=== PATIENT | male | born 1965 | race Caucasian/White ===

== ENCOUNTER 2017-01-06 11:03 | Inpatient (IN) | payer MEDICARE ==
--- OUTSIDE RECORDS SUMMARY | 2017-01-06 11:43 | XMS REPORT | Continuity of Care Document ---
:1965 Author Organization [facility] ([facility]) Address [address] [place] [address] Phone [phone] Care Team Providers Name Role Phone CheyJohn davis Primary Care Provider [phone] Source Comments This disclosure is being made pursuant to the Care Everywhere program, applicable federal and state laws, and may not contain all informaitonavailable regarding this patient.[facility] ([facility]) Active Allergies and Adverse Reactions No Known Allergies Current Medications Prescription Sig. Disp. Refills Start Date End Date Status amLODIPine 5 mg tablet Take 1 Tab (5 mg 30 Tab 11 04/12/2015 Active total) by mouth daily aspirin 81 mg EC tablet Take 1 Tab (81 mg 30 Tab 11 04/12/2015 Active total) by mouth daily atorvastatin 40 mg tablet Take 1 Tab (40 mg 30 Tab 11 04/12/2015 Active total) by mouth daily clopidogrel 75 mg tablet Take 1 Tab (75 mg 30 Tab 11 04/12/2015 Active total) by mouth daily lisinopril 20 mg tablet Take 1 Tab (20 mg 30 Tab 11 04/12/2015 Active total) by mouth daily metoPROLol tartrate 25 mg Take 1 Tab (25 mg 60 Tab 11 04/12/2015 Active tablet total) by mouth every 12 hours Active Problems Problem Noted Date ST elevation myocardial infarction (STEMI) 04/10/2015 HTN (hypertension) 04/10/2015 HLD (hyperlipidemia) 04/10/2015 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, 04/10/2015 initial episode of care CAD (coronary artery disease), [place] coronary artery 04/10/2015 NSVT (nonsustained ventricular tachycardia) 04/10/2015 Social History Tobacco Use Types Packs/Day Years Used Date Never Smoker Smokeless Tobacco: Never Used Alcohol Use Drinks/Week oz/Week Comments No Last Filed Vital Signs Vital Sign Reading Time Taken Blood Pressure 132/72 04/12/2015 7:26 AM CDT Pulse 86 04/12/2015 7:26 AM CDT Temperature 37.1 C (98.8 F) 04/12/2015 7:26 AM CDT Respiratory Rate 18 04/12/2015 7:26 AM CDT Height 1.778 m (5' 10") 04/10/2015 12:19 AM CDT Weight 100.7 kg (222 lb 0.1 oz) 04/12/2015 5:00 AM CDT Body Mass Index 31.85 04/12/2015 5:00 AM CDT Oxygen Saturation 94% 04/12/2015 7:26 AM CDT Plan of Care Health Maintenance Due Date Last Done Comments HCV Screening 1965 Hepatitis B Vaccine (1 of 3 - Primary Series) 1965 Tdap Vaccine 1974 MMR Vaccine 1981 Td Vaccine 1981 Colonoscopy 03/06/2013 Prostate Cancer Screening 2013 Influenza Vaccine: Seasonal (#1) 06/27/2016 Lipid Disorder Screening 04/10/2020 04/10/2015 Results from Last 3 Months Not on file
[2017-01-06 11:51] LABS: Hematocrit 50.3 % (42.0-52.0); Hemoglobin 14.9 gm/dL (13.5-18.0); Mean Cell Volume 94.2 fl (78-100); Mean Corpuscular Hemoglobin 27.9 pg (27-31); Mean Corpuscular Hgb Conc 29.6 g/dl (32-36); Mean Platelet Volume 9.8 fl (6.0-9.5); Neutrophil # 14.3 K/mm3 (1.3-6.0); Neutrophil % 82.5 % (42-75.0); Platelet Count 157 K/mm3 (150-450); Red Blood Count 5.34 M/mm3 (4.7-6.0); Red Cell Distribution Width 14.6 % (11.5-14.0); White Blood Count 17.4 K/mm3 (4.0-10.5)
[2017-01-06 12:07] LABS: Troponin I 0.062 ng/ml (0.00-0.10)
[2017-01-06 12:08] LABS: Albumin * 3.5 gm/dl (3.4-5.0); BUN/Creatinine Ratio 51.5 (9.0-21.6); Bilirubin, Total 0.4 mg/dL (0.0-1.1); Ca. Corrected For Albumin 9.5 mg/dL (8.4-10.2); Calcium * 9.4 mg/dL (7.9-10.9); Potassium 3.6 mmol/L (3.4-4.6); Total Protein 7.5 gm/dL (6.2-8.2)
[2017-01-06 12:18] LABS: Anion Gap 1.3 mmol/L (6.8-13.8); Carbon Dioxide 56.3 mmol/L (24-32.6)
[2017-01-06] MEDS ORDERED: FUROSEMIDE 10 MG/ML VIAL IV ONE ×2 (13:12→19:15)
--- OUTSIDE RECORDS SUMMARY | 2017-01-06 13:47 | XMS REPORT | Continuity of Care Document ---
:1965 Author Organization [facility] ([facility]) Address [address] [place] [address] Phone [phone] Care Team Providers Name Role Phone CheyJohn davis Primary Care Provider [phone] Source Comments This disclosure is being made pursuant to the Care Everywhere program, applicable federal and state laws, and may not contain all informaitonavailable regarding this patient.[facility] ([facility]) Active Allergies and Adverse Reactions No Known [...] episode of care CAD (coronary artery disease), [place] coronary artery 04/10/2015 NSVT (nonsustained ventricular tachycardia) [...]
--- NOTE | 2017-01-06 13:48 | ERNOTE ---
Dyspnea - Date Date of Service: 01/06/17 - General Presenting Symptoms: shortness of breath Time Seen by Provider: 01/06/17 11:07 Source: family, other - patient does provide some history but it is limited. Exam Limitations: no limitations - Immun/Allergies/Home Medications Immunizations: IMMUNIZATION HX Immunizations Up to Date Yes Allergies/Adverse Reactions: Allergies No Known Allergies Allergy (Verified 01/06/17 11:13) Home Medications: HOME MEDICATIONS Acetaminophen/Diphenhydramine [Tylenol Pm Ex-Strength Caplet] 500 mg PO Q6H PRN 08/10/16 [Last Taken Unknown] Albuterol Sulfate [Ventolin HFA] 2 puff INH QID PRN 08/10/16 [Last Taken Unknown ] Atorvastatin Calcium [Lipitor] 40 mg PO HS 08/10/16 [Last Taken Unknown] Calcium Carbonate [Tums] 500 mg PO QID PRN 08/10/16 [Last Taken Unknown] Clopidogrel Bisulfate [Plavix] 75 mg PO DAILY 08/10/16 [Last Taken Unknown] Lisinopril [Zestril] 20 mg PO DAILY 08/10/16 [Last Taken Unknown] Menthol [Biofreeze] 1 appl TP QID PRN 08/10/16 [Last Taken Unknown] Metoprolol Tartrate [Lopressor] 25 mg PO BID 08/10/16 [Last Taken Unknown] Naproxen Sodium [Aleve] 220 mg PO BID PRN 08/10/16 [Last Taken Unknown] Potassium Chloride 10 meq PO TID 08/10/16 [Last Taken Unknown] guaiFENesin [Tab Tussin] 400 mg PO Q4H PRN 08/10/16 [Last Taken Unknown] Furosemide [Lasix] 80 mg PO DAILY #14 tablet 08/15/16 [Last Taken Unknown] Miconazole Nitrate [Cain Antifungal] 1 appl TP BID 01/06/17 [Last Taken Unknown] buPROPion HCL [Wellbutrin SR, Zyban] 150 mg PO BID 01/06/17 [Last Taken Unknown] - History of Present Illness Narrative: Patient presents to the ED via EMS. He can provide some history but it is limited. here, she relates he is DNR/DNI but uses CPAP. relates his CPAP isn't working well for him. He has been trying to get into hospice but that has not been arranged. They understand that his condition is end of life and she request comfort care but no intubation (BiPap only). He denies pain right now. History limited but he will answer some questions. This has been gradually progressive. No acute onset. Legs more swollen. New Sx of left leg skin redness has been noted. Nothign clearly makes this better or worse. Severity: other - his SOB gradually worsening Treatment GAMING DIRECTOR: other - NRB per EMS Initiating event: Reports: other - gradual decline. No acute initiating event Frequency of episodes: Reports: frequent episodes Modifying Factors - (Improves): Reports: nothing Modifying Factors (Worsens): Reports: nothing Associated Symptoms-Dyspnea: Reports: ankle/leg swelling. Denies: fever/chills Prior Treatment: Denies: currently on antibiotics Review of Systems - Narrative Narrative: ROS limited/unavailable d/t patient condition. - Review of Systems All Other Systems: All systems neg except as marked - Patient's Past Medical History Patient History - Medical: Other Patient History - Cardiac/Respiratory: Asthma, Coronary Heart Disease, Hypertension, Hyperlipidemia, Pneumonia, Home O2 Use, Sleep Apnea Patient History - Cancer: No Hx of Cancer Patient History - Surgical Procedures: No surgical history Patient History - Other: None - Family History Mother Family History - Medical: Hypothyroidism, Other Brother Family History - Medical: Other Father Family History - Cardiac/Respiratory: Hypertension - Social History Living Situations: home Alcohol Use: none Drug Use: none - Immunizations Immunizations Up to Date: Yes Physical Exam - Physical Exam General Appearance: Present: other - somnolent but opens eyes and will answer some questions. Mild respiratory distress at this time. Eye Exam: Normal inspection: bilateral, PERRL: bilateral Ears, Nose, Throat: Present: normal ENT inspection Neck: Present: normal inspection Respiratory: Present: decreased breath sounds, other - mild distress. Absent: wheezing Cardiovascular/Chest: Present: tachycardia, other - regular Gastrointestinal/Abdominal: Present: normal bowel sounds, nondistended, soft Back Exam: Absent: CVA tenderness (R), CVA tenderness (L) Extremity Exam: Present: other - bilateral LE swelling. Cellulitic changes left low leg. Redness, warmth, exam c/w cellulitis Neurological Exam: Present: other - somnolent but answers some questions. Diffuse weakness. end stage MD noted. Skin Exam: Present: other - cellulitis left low leg ED Progress - Results and Orders Patient's Lab Results:: I have reviewed the patient's lab results. - Vital Signs Patient's Vital Signs:: I have reviewed the patient's vital signs. Vital Signs: Vital Signs 01/06/17 01/06/17 01/06/17 11:04 11:06 11:52 Temperature 36.7 C 36.0 C L Pulse Rate 112 H 106 H Respiratory 23 H Rate Blood Pressure 241/132 O2 Sat by Pulse 90 Oximetry - EKG EKG read: Interp. by me EKG Comments: Sinus tachycardia rate 112. Non-specific ST/T wave changes, no celar evidence of STEMI. - X-Ray X-Ray #1 X-Ray: chest Interpretation: Reviewed by me X-ray Comments: I reviewed CXR radiology report. - Progress/Reassessment Chief Complaint: Dyspnea Progress Note-Subjective: 01/06/17 14:02 Pt improved per with BiPap. Pt is DNR and DNI. wants comfort measures. Fluid overload treated. Cellulitis treated. D/W Dr Bass as Dr Mcgowan not available. Dr Bass will admit for further eval and management. would like hospice and human services case manager will be involved. Departure Clinical Impression: Hypercarbia, Congestive heart disease - Departure Disposition: [facility]
[2017-01-06] MEDS ORDERED: FUROSEMIDE 10 MG/ML VIAL ONE (14:52)
[2017-01-06] MEDS: LEVOFLOXACIN/D5W 500 MG/100 ML BAG IV SCH (15:07)
[2017-01-06 16:57] LABS: Urine Appearance Slightly Cloudy; Urine Color Yellow
[2017-01-06 16:59] LABS: Urine Bilirubin Negative (NEGATIVE); Urine Blood 10 /ul (NEGATIVE); Urine Ketone Negative (NEGATIVE); Urine Nitrite Negative (NEGATIVE); Urine Protein 100 mg/dL (NEGATIVE); Urine Specific Gravity 1.025 SP.GR. (1.005-1.030); Urine Urobilinogen Normal (NORMAL); Urine pH 6.5 pH (5.0-7.0)
[2017-01-06 17:00] LABS: Urine Bacteria 1+; Urine Hyaline Cast 0-5 /LPF; Urine Mucus Few - 1+; Urine RBC 0-5 /hpf (0-5); Urine Renal Epithelial Cell Few - 1+ /hpf
--- NOTE | 2017-01-06 18:14 | HP ---
Chief Complaint - Chief Complaint Date of Service: 01/06/17 Time of Service: 17:00 Chief Complaint: Shortness of breath History of Present Illness: Artur is a 51 yo male that presented with shortness of breath. He has muscular dystrophy that has slowly been worsening. He chronically uses oxygen at home, but despite oxygen recently he has been getting more short of breath. He presented to the [facility] ER and was hypoxic with oxygen in the 80s. He was placed on a non rebreather and oxygen only maintained at 88%. He had blood gases that showed hypercapnea and was placed on bipap which helped bring his oxygen levels above 90%. He had a chest xray that showed pulmonary congestion. He was given Lasix. - Patient's Past Medical History Patient History - Medical: Other - Muscular Dystrophy Patient History - Cardiac/Respiratory: Asthma, Coronary Heart Disease, Hypertension, Hyperlipidemia, Pneumonia, Home O2 Use, Sleep Apnea, Other - Chronic Respiratory Failure - Hypoxia Patient History - Cancer: No Hx of Cancer Patient History - Surgical Procedures: No surgical history Patient History - Other: None - Family History Mother Family History - Medical: Hypothyroidism, Other Brother Family History - Medical: Other Father Family History - Cardiac/Respiratory: Hypertension - Social History Living Situations: home Smoking Status: Never smoker Have you smoked in the past 12 months: No Alcohol Use: none Drug Use: none - Immunizations Immunizations Up to Date: Yes Review Of Systems (GEN) - Review of Systems Generalized/Overall Review: Present: Weakness EENTM: Present: No Symptoms Reported Respiratory: Present: Cough, Shortness of Breath Cardiac: Present: No Symptoms Reported Abdominal: Present: No Symptoms Reported Genitourinary: Present: No Symptoms Reported Musculoskeletal: Present: No Symptoms Reported Neurological: Present: No Symptoms Reported Skin: Present: No Symptoms Reported Immunizations: IMMUNIZATION HX Immunizations Up to Date Yes Allergies/Adverse Reactions: Allergies Allergy/AdvReac Type Severity Reaction Status Date / Time No Known Allergies Allergy Verified 01/06/17 11:13 Home Medications: HOME MEDICATIONS Acetaminophen/Diphenhydramine [Tylenol Pm Ex-Strength Caplet] 500 mg PO Q6H PRN 08/10/16 [Last Taken Unknown] Albuterol Sulfate [Ventolin HFA] 2 puff INH QID PRN 08/10/16 [Last Taken Unknown ] Atorvastatin Calcium [Lipitor] 40 mg PO HS 08/10/16 [Last Taken Unknown] Calcium Carbonate [Tums] 500 mg PO QID PRN 08/10/16 [Last Taken Unknown] Clopidogrel Bisulfate [Plavix] 75 mg PO DAILY 08/10/16 [Last Taken Unknown] Menthol [Biofreeze] 1 appl TP QID PRN 08/10/16 [Last Taken Unknown] Metoprolol Tartrate [Lopressor] 25 mg PO BID 08/10/16 [Last Taken Unknown] Naproxen Sodium [Aleve] 220 mg PO BID PRN 08/10/16 [Last Taken Unknown] Potassium Chloride 10 meq PO TID 08/10/16 [Last Taken Unknown] guaiFENesin [Tab Tussin] 400 mg PO Q4H PRN 08/10/16 [Last Taken Unknown] Furosemide [Lasix] 80 mg PO DAILY PRN 01/06/17 [Last Taken Unknown] Miconazole Nitrate [Cain Antifungal] 1 appl TP BID 01/06/17 [Last Taken Unknown] buPROPion HCL [Wellbutrin Sr, Zyban] 150 mg PO BID 01/06/17 [Last Taken Unknown] Azithromycin [Zithromax] 500 mg PO DAILY #5 tab 01/11/17 [Last Taken Unknown] Cefdinir [Omnicef] 300 mg PO Q12H #20 cap 01/11/17 [Last Taken Unknown] Docusate Sodium [Colace] 200 mg PO HS #60 capsule 01/11/17 [Last Taken Unknown] HYDROcodone/ACETAMINOPHEN [[place] 5-325] 1 each PO Q4H PRN #60 tablet 01/11/17 [ Last Taken Unknown] Lisinopril [Zestril] 5 mg PO DAILY #30 tablet 01/11/17 [Last Taken Unknown] predniSONE [Prednisone] 40 mg PO DAILY #14 tablet 01/11/17 [Last Taken Unknown] Exam - Exam Vital Signs: Vital Signs - Last Taken Temp 36.8 C 01/06/17 13:45 Pulse 108 H 01/06/17 15:02 Resp 17 01/06/17 14:48 BP 115/82 01/06/17 15:02 Pulse Ox 98 01/06/17 14:48 Constitutional: Present: Oriented x3, Cooperative, Somnolent ENT Exam: Present: hearing grossly normal Eye Exam: bilateral eye: normal inspection Respiratory: Present: respiratory distress, decreased breath sounds, rales - bilaterally, other - currently on bipap Cardiovascular/Chest: Present: no murmur, tachycardia Abdomen: Present: Normal bowel sounds, soft, nontender, nondistended Skin Exam: Present: normal color, warm/dry, no cyanosis Diagnostic Studies: Abnormal Lab Results 01/06/17 01/06/17 Range/Units 14:50 16:25 pCO2 53.6 H (35.0-48.0) mmHg pO2 118.7 H (83.0-108.0) mmHg HCO3 49.6 H (21.0-28.0) mmol/L Total CO2 51.2 H (19.0-24.0) mmol/L Base Excess 24.0 H (-2.0-3.0) mmol/L ABG pH 7.58 H (7.35-7.45) ABG O2 Sat (Measured) 98.7 H (94.0-98.0) % Urine Protein 100 H (NEGATIVE) mg/dL Urine Glucose (UA) 100 H (NEGATIVE) mg/dL Urine Blood 10 H (NEGATIVE) /ul Prot Sulfosalicylic Acd 4+ H (0) mg/dL Urine WBC 5-10 H (0-5) /hpf Ur Renal Epithelial Cell Few - 1+ H (NONE) /hpf Urine Bacteria 1+ H (NONE) Hyaline Casts 0-5 H (NONE) /LPF Urine Mucus Few - 1+ H (NONE) Laboratory Results WBC 17.4 K/mm3 (4.0-10.5) H 01/06/17 11:40 RBC 5.34 M/mm3 (4.7-6.0) 01/06/17 11:40 Hgb 14.9 gm/dL (13.5-18.0) 01/06/17 11:40 Hct 50.3 % (42.0-52.0) 01/06/17 11:40 MCV 94.2 fl (78-100) 01/06/17 11:40 MCH 27.9 pg (27-31) 01/06/17 11:40 MCHC 29.6 g/dl (32-36) L 01/06/17 11:40 RDW 14.6 % (11.5-14.0) H 01/06/17 11:40 Plt Count 157 K/mm3 (150-450) 01/06/17 11:40 MPV 9.8 fl (6.0-9.5) H 01/06/17 11:40 Immature Gran % (Auto) 0.90 % (0.001-0.429) H 01/06/17 11:40 Immature Gran # (Auto) 0.16 K/mm3 (0.000-0.0310) H 01/06/17 11:40 Neutrophils % 82.5 % (42-75.0) H 01/06/17 11:40 Lymphocytes % 9.3 % (20-51) L 01/06/17 11:40 Monocytes % 6.9 % (0.0-9) 01/06/17 11:40 Eosinophils % 0.2 % (0.0-3.0) 01/06/17 11:40 Basophils % 0.2 % (0.0-1.0) 01/06/17 11:40 Nucleated RBC % 0.0 k/mm3 (0-1) 01/06/17 11:40 Neutrophils # 14.3 K/mm3 (1.3-6.0) H 01/06/17 11:40 Lymphocytes # 1.6 k/mm3 (1.5-3.5) 01/06/17 11:40 Monocytes # 1.2 k/mm3 (0.0-1.0) H 01/06/17 11:40 Eosinophils # 0.0 k/mm3 (0.0-0.7) 01/06/17 11:40 Absolute Basophils 0.0 k/mm3 (0.0-0.1) 01/06/17 11:40 pCO2 53.6 mmHg (35.0-48.0) H 01/06/17 16:25 pO2 118.7 mmHg (83.0-108.0) H 01/06/17 16:25 HCO3 49.6 mmol/L (21.0-28.0) H 01/06/17 16:25 Total CO2 51.2 mmol/L (19.0-24.0) H 01/06/17 16:25 Base Excess 24.0 mmol/L (-2.0-3.0) H 01/06/17 16:25 ABG pH 7.58 (7.35-7.45) H 01/06/17 16:25 ABG O2 Sat (Measured) 98.7 % (94.0-98.0) H 01/06/17 16:25 Sodium 144 mmol/L (132-142) H 01/06/17 11:40 Plasma Sodium 146 mmol/L (130-142) H 01/06/17 11:40 Potassium 3.6 mmol/L (3.4-4.6) D 01/06/17 11:40 Chloride 90 mmol/L (97-106) L 01/06/17 11:40 Carbon Dioxide 56.3 mmol/L (24-32.6) H 01/06/17 11:40 Anion Gap 1.3 mmol/L (6.8-13.8) L 01/06/17 11:40 BUN 17 mg/dL (6-23) D 01/06/17 11:40 Creatinine 0.33 mg/dL (0.4-1.4) L 01/06/17 11:40 Est GFR (Non-Af Amer) 299 mL/min (60-130) H 01/06/17 11:40 BUN/Creatinine Ratio 51.5 (9.0-21.6) H 01/06/17 11:40 Random Glucose 226 mg/dL (70-110) H 01/06/17 11:40 Lactic Acid, Venous 1.3 mmol/L (0.4-2.0) 01/06/17 11:40 Calcium 9.4 mg/dL (7.9-10.9) 01/06/17 11:40 Calcium Adj for Albumin 9.5 mg/dL (8.4-10.2) 01/06/17 11:40 Total Bilirubin 0.4 mg/dL (0.0-1.1) 01/06/17 11:40 AST 16 U/L (0-48) 01/06/17 11:40 ALT 26 U/L (19-67) 01/06/17 11:40 Alkaline Phosphatase 82 U/L (50-170) 01/06/17 11:40 Troponin I 0.062 ng/ml (0.00-0.10) 01/06/17 11:40 B-Natriuretic Peptide 1975 pg/mL (5-140) H 01/06/17 11:40 Total Protein 7.5 gm/dL (6.2-8.2) 01/06/17 11:40 Albumin 3.5 gm/dl (3.4-5.0) 01/06/17 11:40 Urine Color Yellow 01/06/17 14:50 Urine Appearance Slightly cloudy 01/06/17 14:50 Urine pH 6.5 pH (5.0-7.0) 01/06/17 14:50 Ur Specific [place] 1.025 SP.GR. (1.005-1.030) 01/06/17 14:50 Urine Protein 100 mg/dL (NEGATIVE) H 01/06/17 14:50 Urine Glucose (UA) 100 mg/dL (NEGATIVE) H 01/06/17 14:50 Urine Ketones Negative mg/dL (NEGATIVE) 01/06/17 14:50 Urine Blood 10 /ul (NEGATIVE) H 01/06/17 14:50 Urine Nitrate Negative (NEGATIVE) 01/06/17 14:50 Urine Bilirubin Negative mg/dl (NEGATIVE) 01/06/17 14:50 Prot Sulfosalicylic Acd 4+ mg/dL (0) H 01/06/17 14:50 Urine Urobilinogen Normal EU/dl (NORMAL) 01/06/17 14:50 Ur Leukocyte Esterase Negative /ul (NEGATIVE) 01/06/17 14:50 Urine RBC 0-5 /hpf (0-5) 01/06/17 14:50 Urine WBC 5-10 /hpf (0-5) H 01/06/17 14:50 Ur Epithelial Cells 0-5 /hpf (0-5) 01/06/17 14:50 Ur Renal Epithelial Cell Few - 1+ /hpf (NONE) H 01/06/17 14:50 Urine Bacteria 1+ (NONE) H 01/06/17 14:50 Hyaline Casts 0-5 /LPF (NONE) H 01/06/17 14:50 Urine Mucus Few - 1+ (NONE) H 01/06/17 14:50 Urine Culture Comments Culture to follow 01/06/17 14:50 Assessment/Plan - Assessment/Plan (1) Acute and chronic respiratory failure with hypercapnia Assessment: Artur is a 51 yo male that has acute on chronic respiratory failure with hypercapnea and hypoxia due to muscular dystrophy and potential CHF based on edema and pulmonary congestion on chest xray. Patient and are interested in comfort cares and possibly hospice as he feels that he cannot continue. Discussed with the family. Will diurese and continue Bipap, will attempt to wean from bipap as able, but if his muscular dystrophy have worsened to a point that he cannot exchange gas correctly he may not be able to wean from bipap. Problem: Acute
[2017-01-06] MEDS ORDERED: [UNRECOGNIZED DRUG - OTHER] TP PRN (18:31)
[2017-01-06] MEDS ORDERED: CALCIUM CARBONATE 500 MG TAB.CHEW PO PRN (18:31)
[2017-01-06] MEDS ORDERED: FLU VACC QS2016-17 36MOS UP/PF 60 MCG/0.5 ML DISP.SYRIN IM ONE (19:00)
[2017-01-06] MEDS: ALBUTEROL SULFATE/IPRATROPIUM 3 ML NEBU IH SCH (19:45)
[2017-01-06] MEDS ORDERED: ATORVASTATIN CALCIUM 40 MG TABLET PO SCH (21:00)
[2017-01-06] MEDS: METOPROLOL TARTRATE 25 MG TABLET PO SCH (21:37)
[2017-01-06] MEDS: buPROPion HCL 150 MG TABLET.SA PO SCH (21:37)
[2017-01-07] MEDS: ALBUTEROL SULFATE/IPRATROPIUM 3 ML NEBU IH SCH ×4 (00:38→18:15)
[2017-01-07] MEDS: METOPROLOL TARTRATE 25 MG TABLET PO SCH ×2 (09:27→21:00)
[2017-01-07] MEDS: POTASSIUM CHLORIDE 10 MEQ TABLET.SA PO SCH ×3 (09:27→16:10)
[2017-01-07] MEDS: buPROPion HCL 150 MG TABLET.SA PO SCH ×2 (09:27→21:02)
[2017-01-07] MEDS: CLOPIDOGREL BISULFATE 75 MG TABLET PO SCH (09:27)
[2017-01-07] MEDS: LISINOPRIL 20 MG TABLET PO SCH (10:05)
[2017-01-07] MEDS: LEVOFLOXACIN/D5W 500 MG/100 ML BAG IV SCH ×2 (13:55→14:16)
[2017-01-07] MEDS: NAPROXEN SODIUM 220 MG TABLET PO PRN (14:01)
[2017-01-07] MEDS ORDERED: FUROSEMIDE 10 MG/ML VIAL IV ONE (15:11)
--- NOTE | 2017-01-07 17:23 | PN ---
Subjective - Date and Time Seen Date: 01/07/17 Time: 11:45 Subjective Narrative: Artur reports feeling better, less short of breath. Only lasts about 15 minutes off of Bipap before he becomes short of breath/diaphoretic on just oxygen. Has swelling in legs, improved, but still tight and sore. Objective - Vitals Vitals: Last Vital Signs Temp 37.0 C 01/07/17 14:58 Pulse 74 01/07/17 15:33 Resp 20 01/07/17 14:58 BP 76/52 01/07/17 15:33 Pulse Ox 98 01/07/17 14:58 - Abnormal Lab Findings Abnormal Lab Findings: Abnormal Lab Results 01/07/17 Range/Units 10:49 pO2 63.7 L (83.0-108.0) mmHg HCO3 43.4 H (21.0-28.0) mmol/L Total CO2 44.9 H (19.0-24.0) mmol/L Base Excess 19.0 H (-2.0-3.0) mmol/L ABG pH 7.58 H (7.35-7.45) - Exam Constitutional: Present: Alert, Oriented x3, Cooperative ENT Exam: Present: hearing grossly normal Respiratory: Present: decreased breath sounds Cardiovascular/Chest: Present: regular rate, rhythm, no murmur Abdomen: Present: Normal bowel sounds, soft, nontender, nondistended Extremity: Present: lower extremity edema - 1+ Skin Exam: Present: warm/dry, no cyanosis, other - mild erythema of bilateral lower extremity Cauti Physician Documentation - Urinary Catheter Management Urethral (Pabon) Date of Insertion: 01/06/17 Time of Insertion: 15:00 Assessment/Plan - Problems/Diagnosis (1) Acute and chronic respiratory failure with hypercapnia Problem: Acute Narrative: Requires continuous bipap. PCO2 has significantly improved with Bipap. Patient will not survive without bipap and needs this at home vs consideration for hospice as he is end stage respiratory failure. Will try further lasix, breathing treatments, time in hopes that he can go longer off the bipap, but right now he is limited to 15 minutes before he fails. Respiratory failure secondary to worsening muscular dystrophy. (2) Metabolic alkalosis Problem: Acute Narrative: Secondary to previous compensation and build up of bicarb. (3) Muscular dystrophy Problem: Chronic
[2017-01-07] MEDS: ACETAMINOPHEN 325 MG TABLET PO PRN (20:13)
[2017-01-07] MEDS: ROSUVASTATIN CALCIUM 10 MG TABLET PO SCH (20:13)
[2017-01-08] MEDS: NAPROXEN SODIUM 220 MG TABLET PO PRN (00:03)
[2017-01-08] MEDS: ALBUTEROL SULFATE/IPRATROPIUM 3 ML NEBU IH SCH ×4 (00:32→18:07)
[2017-01-08] MEDS ORDERED: KETOROLAC TROMETHAMINE 30 MG/ML VIAL IV PRN (01:06)
[2017-01-08] MEDS ORDERED: HYDROcodone/ACETAMINOPHEN 1 EACH TABLET PO PRN (02:33)
[2017-01-08] MEDS: CLOPIDOGREL BISULFATE 75 MG TABLET PO SCH (10:10)
[2017-01-08] MEDS: buPROPion HCL 150 MG TABLET.SA PO SCH ×2 (10:10→20:38)
[2017-01-08] MEDS: LISINOPRIL 20 MG TABLET PO SCH (10:10)
[2017-01-08] MEDS: METOPROLOL TARTRATE 25 MG TABLET PO SCH ×2 (10:10→20:45)
[2017-01-08] MEDS: POTASSIUM CHLORIDE 10 MEQ TABLET.SA PO SCH ×3 (10:10→16:34)
[2017-01-08] MEDS: LEVOFLOXACIN/D5W 500 MG/100 ML BAG IV SCH (13:50)
[2017-01-08] MEDS ORDERED: MORPHINE SULFATE 4 MG/ML SYRG IV PRN (14:07)
[2017-01-08] MEDS ORDERED: traZODone HCL 50 MG TABLET PO PRN (14:08)
--- NOTE | 2017-01-08 15:04 | PN ---
Subjective - Date and Time Seen Date: 01/08/17 Time: 14:59 Subjective Narrative: Artur reports he had a bad night due to leg pain. Remains short of breath anytime he is off bipap for more than 15 minutes. Met with hospice today. Objective - Vitals Vitals: Last Vital Signs Temp 36.8 C 01/08/17 13:55 Pulse 83 01/08/17 14:53 Resp 20 01/08/17 14:53 BP 93/51 01/08/17 13:55 Pulse Ox 96 01/08/17 14:53 - Exam Constitutional: Present: Alert, Oriented x3, Cooperative ENT Exam: Present: hearing grossly normal Respiratory: Present: decreased breath sounds Cardiovascular/Chest: Present: regular rate, rhythm, no murmur Abdomen: Present: Normal bowel sounds, soft, nontender, nondistended Extremity: Present: lower extremity edema - 1+ Skin Exam: Present: warm/dry, no cyanosis, other - Mild erythema of lower legs due to edema Cauti Physician Documentation - Urinary Catheter Management Urethral (Pabon) Date of Insertion: 01/06/17 Time of Insertion: 15:00 Assessment/Plan - Problems/Diagnosis (1) Acute and chronic respiratory failure with hypercapnia Problem: Acute Narrative: Continues to require Bipap due to muscular dystrophy, he cannot come off Bipap for more than 15 minutes without becoming short of breath/diaphoretic. He cannot be further diuresed without hypotension. Will need bipap at home with hospice. (2) Metabolic alkalosis Problem: Acute (3) Muscular dystrophy Problem: Chronic
[2017-01-08 16:35] LABS: Hematocrit 35.8 % (42.0-52.0); Hemoglobin 11.9 gm/dL (13.5-18.0); Mean Cell Volume 83.4 fl (78-100); Mean Corpuscular Hemoglobin 27.7 pg (27-31); Mean Corpuscular Hgb Conc 33.2 g/dl (32-36); Mean Platelet Volume 10.8 fl (6.0-9.5); Neutrophil # 10.2 K/mm3 (1.3-6.0); Platelet Count 170 K/mm3 (150-450); Red Blood Count 4.29 M/mm3 (4.7-6.0); Red Cell Distribution Width 15.5 % (11.5-14.0); White Blood Count 14.5 K/mm3 (4.0-10.5)
[2017-01-08 16:48] LABS: Albumin * 2.7 gm/dl (3.4-5.0); Anion Gap 7.7 mmol/L (6.8-13.8); BUN/Creatinine Ratio 43.6 (9.0-21.6); Bilirubin, Total 0.6 mg/dL (0.0-1.1); Ca. Corrected For Albumin 9.3 mg/dL (8.4-10.2); Calcium * 8.6 mg/dL (7.9-10.9); Potassium 2.7 mmol/L (3.4-4.6)
[2017-01-08] MEDS: ACETAMINOPHEN 325 MG TABLET PO PRN (19:10)
[2017-01-08] MEDS: ROSUVASTATIN CALCIUM 10 MG TABLET PO SCH (20:36)
[2017-01-09] MEDS: ALBUTEROL SULFATE/IPRATROPIUM 3 ML NEBU IH SCH ×4 (00:06→18:08)
[2017-01-09] MEDS: POTASSIUM CHLORIDE 10 MEQ TABLET.SA PO SCH ×2 (09:50→14:30)
[2017-01-09] MEDS: buPROPion HCL 150 MG TABLET.SA PO SCH ×2 (09:50→20:39)
[2017-01-09] MEDS: CLOPIDOGREL BISULFATE 75 MG TABLET PO SCH (09:50)
[2017-01-09] MEDS: METOPROLOL TARTRATE 25 MG TABLET PO SCH ×2 (09:52→20:39)
[2017-01-09] MEDS: LISINOPRIL 20 MG TABLET PO SCH (09:53)
[2017-01-09] MEDS: LEVOFLOXACIN/D5W 500 MG/100 ML BAG IV SCH (14:31)
[2017-01-09 15:24] LABS: Mean Cell Volume 85.1 fl (78-100); Mean Corpuscular Hemoglobin 27.6 pg (27-31); Mean Corpuscular Hgb Conc 32.4 g/dl (32-36); Mean Platelet Volume 11.1 fl (6.0-9.5); Neutrophil # 11.7 K/mm3 (1.3-6.0); Neutrophil % 75.9 % (42-75.0); Platelet Count 166 K/mm3 (150-450); Red Blood Count 4.35 M/mm3 (4.7-6.0); Red Cell Distribution Width 15.6 % (11.5-14.0); White Blood Count 15.4 K/mm3 (4.0-10.5)
[2017-01-09 15:36] LABS: Anion Gap 11.4 mmol/L (6.8-13.8); BUN/Creatinine Ratio 32.2 (9.0-21.6); Calcium * 8.6 mg/dL (7.9-10.9); Carbon Dioxide 35.1 mmol/L (24-32.6); Estimated Creat Clear 149.5
[2017-01-09 15:56] LABS: Potassium 2.5 mmol/L (3.4-4.6)
[2017-01-09] MEDS ORDERED: METHYLPREDNISOLONE SOD SUCC 60 MG in WATER FOR INJ.,BACTERIOSTATIC 0 ML IV ONE (16:16)
[2017-01-09] MEDS: POTASSIUM CHLORIDE 20 MEQ TABLET.SA PO SCH (17:51)
[2017-01-09] MEDS: AZITHROMYCIN 500 MG in DEXTROSE 5 % IN WATER 250 ML IV SCH ×2 (18:22)
[2017-01-09] MEDS: ROSUVASTATIN CALCIUM 10 MG TABLET PO SCH (20:39)
--- NOTE | 2017-01-09 22:23 | PN ---
Subjective - Date and Time Seen Date: 01/09/17 Time: 12:45 Subjective Narrative: Patient reports feeling better, is able to remove the bipap for longer periods of time but eventually gets short of breath and needs to put it back on. No fever, chills, nausea, or vomiting. He feels like he is done fighting and would like hospice. Objective - Vitals Vitals: Last Vital Signs Temp 36.9 C 01/09/17 22:19 Pulse 73 01/09/17 22:19 Resp 20 01/09/17 22:19 BP 126/71 01/09/17 22:19 Pulse Ox 100 01/09/17 22:19 - Abnormal Lab Findings Abnormal Lab Findings: Abnormal Lab Results 01/09/17 01/09/17 Range/Units 15:17 15:17 WBC 15.4 H (4.0-10.5) K/mm3 RBC 4.35 L (4.7-6.0) M/mm3 Hgb 12.0 L (13.5-18.0) gm/dL Hct 37.0 L (42.0-52.0) % RDW 15.6 H (11.5-14.0) % MPV 11.1 H (6.0-9.5) fl Immature Gran % (Auto) 0.50 H (0.001-0.429) % Immature Gran # (Auto) 0.08 H (0.000-0.0310) K/mm3 Neutrophils % 75.9 H (42-75.0) % Lymphocytes % 15.3 L (20-51) % Neutrophils # 11.7 H (1.3-6.0) K/mm3 Monocytes # 1.2 H (0.0-1.0) k/mm3 Potassium 2.5 L (3.4-4.6) mmol/L Chloride 95 L (97-106) mmol/L Carbon Dioxide 35.1 H (24-32.6) mmol/L Est GFR (Non-Af Amer) 153 H (60-130) mL/min BUN/Creatinine Ratio 32.2 H (9.0-21.6) - Exam Constitutional: Present: Alert, Oriented x3, Cooperative ENT Exam: Present: hearing grossly normal Respiratory: Present: decreased breath sounds, rales Cardiovascular/Chest: Present: regular rate, rhythm, no murmur Abdomen: Present: Normal bowel sounds, soft, nontender, nondistended Skin Exam: Present: normal color, warm/dry, no cyanosis Cauti Physician Documentation - Urinary Catheter Management Urethral (Pabon) Date of Insertion: 01/06/17 Time of Insertion: 15:00 Assessment/Plan - Problems/Diagnosis (1) Acute and chronic respiratory failure with hypercapnia Problem: Acute Narrative: Still requiring bipap, although he is able to go off of this for longer periods of time. Working with hospice to get a bipap for comfort. He cannot go home without bipap at this point. (2) Metabolic alkalosis Problem: Acute Narrative: Compensation for respiratory acidosis. (3) Muscular dystrophy Problem: Chronic
[2017-01-10] MEDS: ALBUTEROL SULFATE/IPRATROPIUM 3 ML NEBU IH SCH ×4 (00:21→19:49)
[2017-01-10 08:59] LABS: Hematocrit 38.3 % (42.0-52.0); Hemoglobin 12.3 gm/dL (13.5-18.0); Mean Cell Volume 87.2 fl (78-100); Mean Corpuscular Hgb Conc 32.1 g/dl (32-36); Mean Platelet Volume 11.3 fl (6.0-9.5); Neutrophil # 10.9 K/mm3 (1.3-6.0); Neutrophil % 89.3 % (42-75.0); Platelet Count 190 K/mm3 (150-450); Red Blood Count 4.39 M/mm3 (4.7-6.0); Red Cell Distribution Width 15.5 % (11.5-14.0); White Blood Count 12.2 K/mm3 (4.0-10.5)
[2017-01-10] MEDS: CLOPIDOGREL BISULFATE 75 MG TABLET PO SCH (09:02)
[2017-01-10] MEDS: METOPROLOL TARTRATE 25 MG TABLET PO SCH ×2 (09:02→20:16)
[2017-01-10] MEDS: POTASSIUM CHLORIDE 20 MEQ TABLET.SA PO SCH ×3 (09:04→16:16)
[2017-01-10] MEDS: buPROPion HCL 150 MG TABLET.SA PO SCH ×2 (09:05→20:16)
[2017-01-10] MEDS: predniSONE 20 MG TABLET PO SCH (09:05)
[2017-01-10] MEDS: DOCUSATE SODIUM 100 MG CAPSULE PO SCH ×2 (09:05→20:12)
[2017-01-10] MEDS: LISINOPRIL 5 MG TABLET PO SCH (09:07)
[2017-01-10] MEDS: POLYETHYLENE GLYCOL 3350 119 GM BTL PO SCH (09:10)
[2017-01-10 09:21] LABS: Albumin * 2.9 gm/dl (3.4-5.0); Anion Gap 9.6 mmol/L (6.8-13.8); BUN/Creatinine Ratio 23.5 (9.0-21.6); Bilirubin, Total 0.5 mg/dL (0.0-1.1); Ca. Corrected For Albumin 9.4 mg/dL (8.4-10.2); Calcium * 8.8 mg/dL (7.9-10.9); Carbon Dioxide 37.4 mmol/L (24-32.6); Total Protein 6.6 gm/dL (6.2-8.2)
[2017-01-10] MEDS: AZITHROMYCIN 500 MG in DEXTROSE 5 % IN WATER 250 ML IV SCH ×2 (16:16)
[2017-01-10] MEDS: ROSUVASTATIN CALCIUM 10 MG TABLET PO SCH (20:15)
--- NOTE | 2017-01-10 23:52 | PN ---
Subjective - Date and Time Seen Date: 01/10/17 Time: 16:45 Subjective Narrative: Feeling better, off bipap for 10-15 minutes before becoming short of breath and hypoxic at times. No fever, chills, nausea, or vomiting. Discussing with hospice to get bipap at home. Should be set up for tomorrow and may be discharged. Objective - Vitals Vitals: Last Vital Signs Temp 36.8 C 01/10/17 22:35 Pulse 68 01/10/17 22:35 Resp 18 01/10/17 22:35 BP 117/81 01/10/17 22:35 Pulse Ox 100 01/10/17 22:35 - Abnormal Lab Findings Abnormal Lab Findings: Abnormal Lab Results 01/10/17 01/10/17 Range/Units 08:50 08:50 WBC 12.2 H D (4.0-10.5) K/mm3 RBC 4.39 L (4.7-6.0) M/mm3 Hgb 12.3 L (13.5-18.0) gm/dL Hct 38.3 L (42.0-52.0) % RDW 15.5 H (11.5-14.0) % MPV 11.3 H (6.0-9.5) fl Immature Gran % (Auto) 0.50 H (0.001-0.429) % Immature Gran # (Auto) 0.06 H (0.000-0.0310) K/mm3 Neutrophils % 89.3 H (42-75.0) % Lymphocytes % 6.5 L (20-51) % Neutrophils # 10.9 H (1.3-6.0) K/mm3 Lymphocytes # 0.8 L (1.5-3.5) k/mm3 Plasma Sodium 144 H (130-142) mmol/L Potassium 3.0 L (3.4-4.6) mmol/L Carbon Dioxide 37.4 H (24-32.6) mmol/L Est GFR (Non-Af Amer) 181 H (60-130) mL/min BUN/Creatinine Ratio 23.5 H (9.0-21.6) Random Glucose 274 H D (70-110) mg/dL Albumin 2.9 L (3.4-5.0) gm/dl - Exam Constitutional: Present: Alert, Oriented x3, Cooperative ENT Exam: Present: hearing grossly normal Respiratory: Present: decreased breath sounds, rales Cardiovascular/Chest: Present: regular rate, rhythm, no murmur Abdomen: Present: Normal bowel sounds, soft, nontender, nondistended Skin Exam: Present: normal color, warm/dry, no cyanosis Cauti Physician Documentation - Urinary Catheter Management Urethral ([place]) Date of Insertion: 01/06/17 Time of Insertion: 15:00 Assessment/Plan Plan Narrative: He continues to require bipap. Should have bipap through hospice at home set up for tomorrow and may be discharged if that is the case. Repeat chest xray after diuresis showed potential pneumonia. Started on rocephin and azithromycin. - Problems/Diagnosis (1) Acute and chronic respiratory failure with hypercapnia Problem: Acute (2) Pneumonia Problem: Acute Qualifiers: Pneumonia type: aspiration pneumonia Laterality: bilateral Lung location : lower lobe of lung (3) Metabolic alkalosis Problem: Acute (4) Muscular dystrophy Problem: Chronic
[2017-01-11] MEDS: ALBUTEROL SULFATE/IPRATROPIUM 3 ML NEBU IH SCH ×3 (00:30→13:18)
[2017-01-11 06:20] LABS: Hemoglobin 11.6 gm/dL (13.5-18.0); Mean Cell Volume 87.9 fl (78-100); Mean Corpuscular Hemoglobin 27.6 pg (27-31); Mean Corpuscular Hgb Conc 31.4 g/dl (32-36); Mean Platelet Volume 11.2 fl (6.0-9.5); Neutrophil # 11.1 K/mm3 (1.3-6.0); Neutrophil % 68.9 % (42-75.0); Platelet Count 224 K/mm3 (150-450); Red Blood Count 4.21 M/mm3 (4.7-6.0); Red Cell Distribution Width 15.8 % (11.5-14.0); White Blood Count 16.1 K/mm3 (4.0-10.5)
[2017-01-11 06:37] LABS: Albumin * 2.8 gm/dl (3.4-5.0); Anion Gap 10.3 mmol/L (6.8-13.8); BUN/Creatinine Ratio 44.4 (9.0-21.6); Bilirubin, Total 0.3 mg/dL (0.0-1.1); Ca. Corrected For Albumin 9.8 mg/dL (8.4-10.2); Calcium * 9.2 mg/dL (7.9-10.9); Carbon Dioxide 34.6 mmol/L (24-32.6); Potassium 4.9 mmol/L (3.4-4.6); Total Protein 6.2 gm/dL (6.2-8.2)
[2017-01-11] MEDS: POLYETHYLENE GLYCOL 3350 119 GM BTL PO SCH (08:52)
[2017-01-11] MEDS: CLOPIDOGREL BISULFATE 75 MG TABLET PO SCH (08:52)
[2017-01-11] MEDS: DOCUSATE SODIUM 100 MG CAPSULE PO SCH (08:53)
[2017-01-11] MEDS: METOPROLOL TARTRATE 25 MG TABLET PO SCH (08:53)
[2017-01-11] MEDS: buPROPion HCL 150 MG TABLET.SA PO SCH (08:53)
[2017-01-11] MEDS: LISINOPRIL 5 MG TABLET PO SCH (08:54)
[2017-01-11] MEDS: predniSONE 20 MG TABLET PO SCH (08:55)
--- NOTE | 2017-01-11 14:05 | DS ---
(1) Acute and chronic respiratory failure with hypercapnia Diagnosis(s): Artur is a 51 yo male that was admitted with acute on chronic respiratory failure with hypercapnea and hypoxia. This was caused from progressive muscular dystrophy and possible pneumonia and pulmonary congestion. He was placed on bipap which was able to keep him appropriately oxygenated and treat the hypercapnea. He became more alert with bipap use. However he was unable to remove the bipap without becoming short of breath. With diuresis as able he gradually was able to tolerate off the bipap for longer periods of time but still no more than 20 minutes at a time. Diuresis was limited at times due to hypotension. Chest xray was repeated that showed improvement of pulmonary congestion but there was potential underlying pneumonia present. He was started on rocephin and azithromycin. Throughout hospital course discussed with patient and his regarding their wishes. He was DNR and DNI and was interested in comfort cares and hospice at home. Hospice was consulted and met with patient. With hospice he was able to get a bipap for home uses. With breathing improved and stable as long as he remained on bipap he requested to go home. He was discharged with home hospice on bipap. He will continue using antibiotics and may try to wean from bipap as able. Problem: Acute (2) Metabolic alkalosis Problem: Acute (3) Muscular dystrophy Problem: Chronic (4) Acute diastolic CHF (congestive heart failure) Problem: Acute (5) Pneumonia Problem: Acute Qualifiers: Pneumonia type: due to unspecified organism Laterality: bilateral Lung location: lower lobe of lung Qualified Code(s): J18.9 - Pneumonia, unspecified organism Procedures Performed: none Discharge Disposition: Home self care Disposition: Home self-care Condition: Stable Discharge Activity: Activity as tolerated Discharge Diet: General/regular food Discharge Level of Care:: Hospice - Home Problem Oriented Discharge Instructions to Patient/Family: Acute Respiratory Failure, Community-Acquired Pneumonia, Adult, [id number] Prescriptions (Any new or edited meds): Azithromycin [Zithromax] 500 mg PO DAILY #5 tab Cefdinir [Omnicef] 300 mg PO Q12H #20 cap Docusate Sodium [Colace] 200 mg PO HS #60 capsule HYDROcodone/ACETAMINOPHEN [Peterson 5-325] 1 each PO Q4H PRN #60 tablet PRN Reason: Moderate Pain Lisinopril [Zestril] 5 mg PO DAILY #30 tablet predniSONE [Prednisone] 40 mg PO DAILY #14 tablet Complete Home Medications List: Complete Home Medication List: Acetaminophen/Diphenhydramine [Tylenol Pm Ex-Strength Caplet] 500 mg PO Q6H PRN 08/10/16 Albuterol Sulfate [Ventolin HFA] 2 puff INH QID PRN 08/10/16 Atorvastatin Calcium [Lipitor] 40 mg PO HS 08/10/16 Calcium Carbonate [Tums] 500 mg PO QID PRN 08/10/16 Clopidogrel Bisulfate [Plavix] 75 mg PO DAILY 08/10/16 Menthol [Biofreeze] 1 appl TP QID PRN 08/10/16 Metoprolol Tartrate [Lopressor] 25 mg PO BID 08/10/16 Naproxen Sodium [Aleve] 220 mg PO BID PRN 08/10/16 Potassium Chloride 10 meq PO TID 08/10/16 guaiFENesin [Tab Tussin] 400 mg PO Q4H PRN 08/10/16 Furosemide [Lasix] 80 mg PO DAILY PRN 01/06/17 Miconazole Nitrate [Cain Antifungal] 1 appl TP BID 01/06/17 buPROPion HCL [Wellbutrin Sr, Zyban] 150 mg PO BID 01/06/17 Azithromycin [Zithromax] 500 mg PO DAILY #5 tab 01/11/17 Cefdinir [Omnicef] 300 mg PO Q12H #20 cap 01/11/17 Docusate Sodium [Colace] 200 mg PO HS #60 capsule 01/11/17 HYDROcodone/ACETAMINOPHEN [Peterson 5-325] 1 each PO Q4H PRN #60 tablet 01/11/17 Lisinopril [Zestril] 5 mg PO DAILY #30 tablet 01/11/17 predniSONE [Prednisone] 40 mg PO DAILY #14 tablet 01/11/17
[2017-01-11 14:40] VITALS: BP 127/90
== END 2017-01-11 15:49 | disposition home or self-care (01) | DRG 189 ==
LOC: ER 11:03 → MS 13:43 → OBSVTOIN 13:43
PROVIDERS: ADMIT Family Medicine; ATTEND Internal Medicine
PROC: 4A033R1 Measurement of Arterial Saturation, Peripheral, Percutaneous Approach (ICD-10-PCS; principal; 2017-01-06)
DX: J96.22 Acute and chronic respiratory failure with hypercapnia (principal); J18.9 Pneumonia, unspecified organism; I50.31 Acute diastolic (congestive) heart failure; G71.0 Muscular dystrophy; E87.3 Alkalosis; Z99.81 Dependence on supplemental oxygen

== ENCOUNTER 2018-09-27 12:17 | Inpatient (IN) ==
[2018-09-27] MEDS ORDERED: LORazepam 1 MG TABLET PO PRN (13:08)
[2018-09-27] MEDS ORDERED: BISMUTH SUBSALICYLATE PO PRN (13:08)
[2018-09-27] MEDS ORDERED: OXYCODONE HCL 20 MG PO PRN (13:08)
[2018-09-27] MEDS ORDERED: ALBUTEROL SULFATE 2.5 MG/0.5 ML VIAL.NEB IH PRN (13:08)
[2018-09-27] MEDS ORDERED: POLYETHYLENE GLYCOL 3350 119 GM BTL PO PRN (13:11)
--- NOTE | 2018-09-27 13:33 | HP ---
Chief Complaint - Chief Complaint Date of Service: 09/27/18 Time of Service: 13:14 Chief Complaint: respite care for hospice History of Present Illness: Patient has a PMHx of muscular dystrophy, chronic respiratory failure, lower extremity paralysis, depressive disorder, heart failure, who has been on hospice. He lives at home with his , and his family request brief respite care, so he is subsequently admitted to our facility. Will continue all meds that he takes at home. He uses BiPAP at night, and wears a c collar to help hold his head. He has enough strength to feed himself. Would like to use the bedpan for bowel movements while here. Will not check vitals. Medical History BiPAP (biphasic positive airway pressure) dependence Chronic respiratory failure Essential hypertension Femur fracture metal implant Heart failure Major depressive disorder Muscular dystrophy Shortness of breath Supplemental oxygen dependent Surgical History: Surgical History Hx of appendectomy Social History: Preferred Language [place] Smoking Status Never smoker No Social History Section defined Review Of Systems (GEN) - Review of Systems Generalized/Overall Review: Absent: Fever Cardiac: Absent: Chest Pain Abdominal: Present: Constipation. Absent: Vomiting Genitourinary: Absent: Urgency Immunizations: IMMUNIZATION HX Immunizations Up to Date Yes Allergies/Adverse Reactions: Allergies Allergy/AdvReac Type Severity Reaction Status Date / Time No Known Allergies Allergy Verified 09/27/18 13:08 Home Medications: HOME MEDICATIONS Albuterol Sulfate [Ventolin HFA] 2 puff IH Q4H PRN 09/27/18 [Last Taken Unknown] Bismuth Subsalicylate [Pepto Bismol] 2 tab PO DAILY PRN 09/27/18 [Last Taken Unknown] Docusate Sodium 200 mg PO HS 09/27/18 [Last Taken Unknown] LORazepam [Ativan] 1 mg PO Q4H PRN 09/27/18 [Last Taken Unknown] Miconazole Nitrate [Cain] 1 appl TP BID 09/27/18 [Last Taken Unknown] Morphine Sulfate [Ms Contin] 120 mg PO BID 09/27/18 [Last Taken Unknown] Polyethylene Glycol 3350 [Miralax] 17 gm PO DAILY PRN 09/27/18 [Last Taken Unknown] Sennosides [Senna Lax] 3 tab PO HS 09/27/18 [Last Taken Unknown] buPROPion HCL [Wellbutrin XL] 150 mg PO DAILY 09/27/18 [Last Taken Unknown] oxyCODONE HCL [Oxycodone HCl] 20 mg PO Q4H PRN 09/27/18 [Last Taken Unknown] oxyCODONE HCL [Roxicodone solution] 10 - 20 mg PO Q2H PRN 09/27/18 [Last Taken Unknown] Exam - Exam Constitutional: Present: Alert - In motorized WC, wearing C collar, Oriented x3, Cooperative, Obese Respiratory: Present: lungs clear - diminished lung sounds, No wheezing Cardiovascular/Chest: Present: regular rate, rhythm Abdomen: Present: nontender Extremity: Absent: lower extremity edema Eye contact: Present: cooperative Assessment/Plan - Assessment/Plan (1) Muscular dystrophy Assessment: Admitted for respite care for approximately 5 days. Patient is receiving hospice services. Continue lorazepam, MS contin, oxycodone, roxanol. Continue cain cream to naomi area prn. Problem: Chronic (2) Chronic respiratory failure Assessment: Will use BiPAP overnight. Problem: Chronic (3) Constipation Assessment: Continue daily senna, docusate, prn miralax. Last BM yesterday. Pepto bismol if needed for stomach upset. Problem: Chronic (4) Depression Assessment: continue wellbutrin Problem: Chronic
[2018-09-27] MEDS ORDERED: BISMUTH SUBSALICYLATE 237 ML BTL PO PRN (13:45)
[2018-09-27] MEDS: MORPHINE SULFATE 60 MG TABLET.SA PO SCH (21:42)
[2018-09-27] MEDS: DOCUSATE SODIUM 100 MG CAPSULE PO SCH (21:42)
[2018-09-27] MEDS: MICONAZOLE NITRATE 30 APPL TUBE TP SCH (21:42)
[2018-09-27] MEDS: SENNOSIDES 8.6 MG TABLET PO SCH (21:43)
[2018-09-28] MEDS: MORPHINE SULFATE 60 MG TABLET.SA PO SCH ×2 (09:54→20:47)
[2018-09-28] MEDS: MICONAZOLE NITRATE 30 APPL TUBE TP SCH ×2 (09:54→20:46)
[2018-09-28] MEDS: buPROPion HCL 150 MG TAB.SR.24H PO SCH (09:54)
[2018-09-28] MEDS: oxyCODONE HCL 5 MG/5 ML UDC PO PRN ×2 (10:00→14:26)
[2018-09-28] MEDS: oxyCODONE HCL 5 MG/5 ML UDC PO SCH (20:45)
[2018-09-28] MEDS: DOCUSATE SODIUM 100 MG CAPSULE PO SCH (20:47)
[2018-09-28] MEDS: SENNOSIDES 8.6 MG TABLET PO SCH (20:48)
[2018-09-29] MEDS: oxyCODONE HCL 5 MG/5 ML UDC PO SCH ×4 (02:34→20:53)
[2018-09-29] MEDS: buPROPion HCL 150 MG TAB.SR.24H PO SCH (08:11)
[2018-09-29] MEDS: MORPHINE SULFATE 60 MG TABLET.SA PO SCH ×2 (08:11→20:51)
[2018-09-29] MEDS: MICONAZOLE NITRATE 30 APPL TUBE TP SCH ×2 (08:11→20:54)
[2018-09-29] MEDS: DOCUSATE SODIUM 100 MG CAPSULE PO SCH (20:51)
[2018-09-29] MEDS: SENNOSIDES 8.6 MG TABLET PO SCH (20:52)
[2018-09-30] MEDS: oxyCODONE HCL 5 MG/5 ML UDC PO SCH ×4 (02:18→20:24)
[2018-09-30] MEDS: MORPHINE SULFATE 60 MG TABLET.SA PO SCH ×2 (09:01→20:26)
[2018-09-30] MEDS: MICONAZOLE NITRATE 30 APPL TUBE TP SCH ×3 (09:02→20:28)
[2018-09-30] MEDS: buPROPion HCL 150 MG TAB.SR.24H PO SCH (09:02)
[2018-09-30] MEDS: SENNOSIDES 8.6 MG TABLET PO SCH (20:26)
[2018-09-30] MEDS: DOCUSATE SODIUM 100 MG CAPSULE PO SCH (20:26)
[2018-10-01] MEDS: oxyCODONE HCL 5 MG/5 ML UDC PO SCH ×2 (02:39→09:04)
--- NOTE | 2018-10-01 08:35 | DS ---
(1) Chronic respiratory failure Problem: Chronic Qualifiers: Respiratory failure complication: unspecified whether with hypoxia or hypercapnia Qualified Code(s): J96.10 - Chronic respiratory failure, unspecified whether with hypoxia or hypercapnia (2) Constipation Problem: Chronic Qualifiers: Constipation type: slow transit constipation Qualified Code(s): K59.01 - Slow transit constipation (3) Depression Problem: Chronic Qualifiers: Depression Type: unspecified Qualified Code(s): F32.9 - Major depressive disorder, single episode, unspecified (4) Congestive heart disease Problem: Chronic Qualifiers: Heart failure type: diastolic Heart failure chronicity: chronic Qualified Code(s): I50.32 - Chronic diastolic (congestive) heart failure (5) Hyperlipidemia Problem: Chronic Qualifiers: Hyperlipidemia type: Mixed hyperlipidemia Qualified Code(s): E78.2 - Mixed hyperlipidemia (6) Hypertension Problem: Chronic Qualifiers: Hypertension type: essential hypertension Qualified Code(s): I10 - Essential (primary) hypertension (7) Muscular dystrophy Problem: Chronic (8) MICHELLE (obstructive sleep apnea) Problem: Chronic Description of Stay: Artur king, is a 53 year old white male with a PMHx of muscular dystrophy, chronic respiratory failure, lower extremity paralysis, depressive disorder, heart failure, who has been on home hospice. He lives at home with his , and his family requested for a brief respite care, so he was subseq uently admitted to our facility on September 27, 2018. He was continued on all meds that he took at home. He was continued on BiPAP at night, and continued with his C collar to help hold his head up. He was still able to feed to feed himself and used the bedpan for bowel movements while here. He was kept on comfort cares and no VS were monitored. He is going home today. Procedures Performed: none Discharge Location: Home Disposition: Hospice Home Home Health Agency: [facility] Condition: Poor Discharge Activity: Activity as tolerated Discharge Diet: General/regular food Referrals: Cydney Mooney DO [Primary Care Provider] - Additional Patient Instructions (free text): [facility] ongoing, please call and fax discharge information to them. Complete Home Medications List: Complete Home Medication List: Albuterol Sulfate [Ventolin HFA] 2 puff IH Q4H PRN 09/27/18 Bismuth Subsalicylate [Pepto Bismol] 2 tab PO DAILY PRN 09/27/18 Docusate Sodium 200 mg PO HS 09/27/18 LORazepam [Ativan] 1 mg PO Q4H PRN 09/27/18 Miconazole Nitrate [Cain] 1 appl TP BID 09/27/18 Morphine Sulfate [Ms Contin] 120 mg PO BID 09/27/18 Polyethylene Glycol 3350 [Miralax] 17 gm PO DAILY PRN 09/27/18 Sennosides [Senna Lax] 3 tab PO HS 09/27/18 buPROPion HCL [Wellbutrin Xl] 150 mg PO DAILY 09/27/18 oxyCODONE HCL [Oxycodone HCl] 20 mg PO Q4H PRN 09/27/18 oxyCODONE HCL [Roxicodone solution] 20 mg PO Q2H PRN 09/27/18
[2018-10-01] MEDS: buPROPion HCL 150 MG TAB.SR.24H PO SCH (09:05)
[2018-10-01] MEDS: MORPHINE SULFATE 60 MG TABLET.SA PO SCH (09:05)
[2018-10-01] MEDS: MICONAZOLE NITRATE 30 APPL TUBE TP SCH (09:05)
[2018-10-01 11:48] VITALS: BP 194/114
== END 2018-10-01 11:50 | disposition hospice, home (50) | DRG 951 ==
LOC: MS 12:17
PROVIDERS: ADMIT Family Medicine; ATTEND Family Medicine
CPT/HCPCS: 94640; 94660; 94664